=== PATIENT | female | born 1955 | race Caucasian/White ===

== ENCOUNTER 2020-01-02 14:17 | Emergency (ER) | payer OTHER, SELFPAY ==
[2020-01-02 14:25] VITALS: BP 190/91; PULSE 84; RESP 20; TEMP 36.7; O2SAT 96; BMI 34.3
--- NOTE | 2020-01-02 14:32 | DI.RAD.S_ITS ---
PROCEDURE: XR CHEST 2V INDICATIONS: shortness of breath TECHNIQUE: 2 views of the chest were acquired. COMPARISON: None. FINDINGS: Surgical changes and devices: None. Lungs and pleura: Lungs are clear. No pleural effusions or pneumothorax. Mediastinum: Mediastinal contours are normal. Heart size is normal. Bones and chest wall: No suspicious bony abnormalities. Soft tissues appear unremarkable. IMPRESSION: No acute cardiopulmonary process is evident. Dictated by: Sekou Dunn M.D. on 01/02/2020 at 14:30 Approved by: Sekou Dunn M.D. on 01/02/2020 at 14:30
--- NOTE | 2020-01-02 14:48 | PC.NURSE ---
Pt states over past 2 days has had increasing SOB with wheezing and intermittent productive cough of yellow sputum. Pt denies fever/chills, denies CP, denies any known exposure to anyone with Covid-19, reports hx of COPD. Pt speaking full sentences with ease while at rest, noted with increasing labored breathing with movement, otherwise pt in NAD.
--- NOTE | 2020-01-02 14:51 | ED_ITS ---
HPI - SOB/Dyspnea <BRANDI Castillo - Last Filed: 01/02/20 18:38> General Chief Complaint: Shortness of Breath/Dyspnea Stated Complaint: copd-wheezing/nausea/headache x2 days Time Seen by Provider: 01/02/20 14:38 Source: patient Mode of arrival: Ambulatory Limitations: no limitations History of Present Illness HPI Narrative: 64yo female with a history of COPD, presents emergency department for wheezing for the past 2 days. She states she treat her COPD with occasional nebulizers, she has had to use 3 nebulizers a day for the past 2 days due to increased wheezing. Patient states these exacerbations happen intermittently and are usually relieved with prednisone. 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 Patient states she is able to walk without significant shortness of breath. She denies any fevers, chills, cough, sore throat, chest pain, abdominal pain, nausea, vomiting, diarrhea, or any other concerns. Patient requesting prednisone prescription. Related Data Home Medications Medication Instructions Recorded Confirmed ibuprofen 600 mg PO TID #0 03/22/16 oxycodone-acetaminophen [Percocet] 1 tab PO Q4HP PRN #0 03/22/16 venlafaxine #0 03/22/16 Previous Rx's Medication Instructions Recorded oxycodone-acetaminophen [Percocet] 1 - 2 tab PO EVERY 4-6 HOURS PRN 03/22/16 #20 tab prednisone 50 mg PO DAILY 4 Days #4 tab 01/02/20 Allergies Allergy/AdvReac Type Severity Reaction Status Date / Time No Known Drug Allergies Allergy Verified 01/02/20 15:20 Review of Systems <BRANDI Castillo - Last Filed: 01/02/20 18:38> Review of Systems Narrative: REVIEW OF SYSTEMS: GENERAL: Denies fevers. HENT: No head trauma or hearing loss. EYES: No vision changes. CARDIOVASCULAR: No chest pain. RESPIRATORY: Reports wheezing, see HPI. GASTROINTESTINAL: No nausea, vomiting, diarrhea, or constipation. MUSCULOSKELETAL: No weakness or injury. INTEGUMENTARY: No rash, lesions, or pruritus. NEURO: No memory loss, or confusion. Patient History <BRANDI Castillo - Last Filed: 01/02/20 18:38> Medical History COPD (chronic obstructive pulmonary disease) (Acute) Social History Smoking Status: Never smoker Smoking Status: Never smoker alcohol intake frequency: 0-2 drinks per day Substance Use Type: does not use Exam <BRANDI Castillo - Last Filed: 01/02/20 18:38> Initial Vital Signs Initial Vital Signs: Vital Signs Temperature 98.1 F 01/02/20 14:25 Pulse Rate 84 01/02/20 14:25 Respiratory Rate 01/02/20 14:25 Blood Pressure 190/91 H 01/02/20 14:25 Pulse Oximetry 96 01/02/20 14:25 PHYSICAL EXAMINATION: GENERAL: Well groomed, alert, and cooperative. Answers questions promptly and appropriately. Vital signs noted. HENT: Normocephalic, atraumatic. Ear canals patent. Oropharynx without erythe ma. Tonsils are not present. EYES: Conjunctiva pink, sclera white, no periorbital swelling. No discharge. CHEST: Normal to inspection and without deformities. CARDIOVASCULAR: S1 and S2 sounds normal. Regular rate and rhythm, no murmurs, clicks, or bruits. RESPIRATORY: Normal respiratory rate, trachea midline, airway patent. No stridor, nasal flaring or accessory muscle use. Able to speak in full sentences. Lungs with diffuse expiratory wheezes, no crackles. No cough. Patient able to quickly ambulate across the department to use the bathroom, no respiratory distress seen. MUSCULOSKELETAL: Normal gait and coordination. Equal tone and mass bilaterally. EXTREMITIES: Moves all extremities. SKIN: Warm, dry, soft, appropriate color for ethnicity. No lesions, rashes, or wounds to visualized areas. NEURO: Alert and Oriented X 3. Good coordination. No ataxia or cognitive issues. PSYCH: Appropriate affect and mood. <Jean Alva MD - Last Filed: 01/03/20 07:27> Initial Vital Signs Initial Vital Signs: Vital Signs Temperature 98.1 F 01/02/20 14:25 Pulse Rate 84 01/02/20 14:25 Respiratory Rate 20 01/02/20 14:25 Blood Pressure 190/91 H 01/02/20 14:25 Pulse Oximetry 96 01/02/20 14:25 Course <BRANDI Castillo - Last Filed: 01/02/20 18:38> Course Course Narrative: Patient was given 6 past of an albuterol inhaler, reported significant improvement of wheezing and shortness of breath. Upon re-evaluation post prednisone and albuterol inhaler, patient had resolution of wheezes, occasional scattered rhonchi noted at the bases that cleared with cough. Patient states she is ready for discharge, requesting work note. Discussed testing for covered due to exacerbation of COPD, patient was agreeable at this time. Orders Ordered: Discontinued Medications Albuterol (Ventolin Hfa) 6 puff INH NOW ONE Stop: 01/02/20 14:55 Last Admin: 01/02/20 15:04 Dose: 6 puff Documented by: JIMMY Albuterol/Ipratropium (Combivent Respimat) 2 puff INH NOW ONE Stop: 01/02/20 14:48 Prednisone (Deltasone) 60 mg PO NOW ONE Stop: 01/02/20 14:48 Last Admin: 01/02/20 15:21 Dose: 60 mg Documented by: SKYLAR Consultations Consultation #1: Patient staffed with Dr. Alva, discussed symptoms, tests, test results. Vital Signs Vital signs: Vital Signs - 8 hr 01/02/20 14:25 01/02/20 15:06 01/02/20 16:00 Temperature 98.1 F Pulse Rate 84 100 H 69 Respiratory Rate 20 26 H 18 Blood Pressure 190/91 H Blood Pressure [Right Arm] 143/68 H Pulse Oximetry 96 96 96 <Jean Alva MD - Last Filed: 01/03/20 07:27> Orders Ordered: Discontinued Medications Albuterol (Ventolin Hfa) 6 puff INH NOW ONE Stop: 01/02/20 14:55 Last Admin: 01/02/20 15:04 Dose: 6 puff Documented by: JIMMY Albuterol/Ipratropium (Combivent Respimat) 2 puff INH NOW ONE Stop: 01/02/20 14:48 Prednisone (Deltasone) 60 mg PO NOW ONE Stop: 01/02/20 14:48 Last Admin: 01/02/20 15:21 Dose: 60 mg Documented by: SKYLAR Vital Signs Vital signs: Vital Signs - 8 hr 01/02/20 14:25 01/02/20 15:06 01/02/20 16:00 Temperature 98.1 F Pulse Rate 84 100 H 69 Respiratory Rate 20 26 H 18 Blood Pressure 190/91 H Blood Pressure [Right Arm] 143/68 H Pulse Oximetry 96 96 96 [facility] - SOB/Dyspnea <BRANDI Castillo - Last Filed: 01/02/20 18:38> Medical Records Attestation: I reviewed the patient's medical records. Lab Data Attestation: I reviewed the patient's lab results. Imaging Data Chest x-ray: Radiologist's Impression: [address] [address] XRay Report Signed Patient: Maria M Howell LMR#: [id number] : 8Acct:[id number] Age/Sex: 64 / FDate of Service: 01/02/20 Loc: ED Accession Number: [id number] Procedure: XR chest 2V Ordering Provider: Jean Alva MD PROCEDURE: XR CHEST 2V INDICATIONS: shortness of breath TECHNIQUE: 2 views of the chest were acquired. COMPARISON: None. FINDINGS: Surgical changes and devices: None. Lungs and pleura: Lungs are clear. No pleural effusions or pneumothorax. Mediastinum: Mediastinal contours are normal. Heart size is normal. Bones and chest wall: No suspicious bony abnormalities. Soft tissues appear unremarkable. IMPRESSION: No acute cardiopulmonary process is evident. Dictated by: Sekou Dunn M.D. on 01/02/2020 at 14:30 Approved by: Sekou Dunn M.D. on 01/02/2020 at 14:30 ECG Data Interpretation: 14:49; normal sinus rhythm, rate 78, ME interval 138, QTC 437. No ST elevation or ST depression. No T-wave abnormality. No ectopy. EKG also viewed by Dr. Alva per protocol. [facility] Narrative Medical decision making narrative: 64-year-old female with a history of COPD, presents emergency department for increased wheezing over the past 2 days. I suspect patient's symptoms are most likely caused by a COPD exacerbation, u nsure the exact cause of exacerbation. May include allergies versus viral illness. No systemic symptoms for acute illness such as fever, tachycardia, cough, or fatigue. However, chest x-ray was ordered to rule out pneumonia, pulmonary edema, or other cardiopulmonary disease. Images were negative for any acute findings. After discussion with patient, recommended testing for COVID-19 due to current pandemic. Patient's symptoms significantly improved after administration of albuterol and prednisone. Patient states usually prednisone helps resolve symptoms. Less suspicion for ACS as EKG is without acute changes, symptoms resolved after albuterol administration, and patient denies any other symptoms such as chest pain or activity intolerance. Patient was encouraged to stay home and self quarantine until symptoms have resolved. She was encouraged to follow up with her primary care provider in 1-2 weeks for further evaluation. Strict return precautions given for new or worsening symptoms. Patient was agreeable to plan of care. Discharge Plan Departure Patient Disposition: Home Clinical Impression: Acute exacerbation of chronic obstructive pulmonary disease Discharge Date/Time: 01/02/20 16:15 Instructions: DI for Chronic Obstructive Pulmonary Disease, Coronavirus Disease 2019, Can COVID-19 be prevented? Activity Restrictions/Additional Instructions: Thank you for entrusting me with your care today. As discussed, your x-ray is negative for any concerning findings. Your EKG is non-remarkable. Your symptoms are most likely caused by a COPD exacerbation, use your nebulizing treatments every 4-6 hours as needed for shortness of breath and wheezing. I have given you your 1st dose of prednisone today. A prescription for a prednisone taper has been sent to [facility] in [place]. You have been tested for COVID-19. This test may take 1-3 days for results to return, we will call you with these results. Please remain in quarantine with self isolation at home. Drink lots of fluids, take Tylenol for fever, get extra rest, clean all surfaces, cover your cough, wash your hands frequently, and avoid sharing any personal items. If you need to seek medical care, please call the clinic or the emergency department before your arrival. Return emergency department for any new or worsening symptoms such as chest pain, worsening shortness of breath, fevers, uncontrollable vomiting, or any other concerns. Prescriptions: New prednisone 50 mg tablet 50 mg PO DAILY 4 Days Qty: 4 RF: 0 No Action venlafaxine 25 mg tablet Qty: 0 RF: 0 oxycodone-acetaminophen [Percocet] 5 MG/325 MG tablet 1 tab PO Q4HP PRNQty: 0 RF: 0 ibuprofen 600 MG tablet 600 mg PO TID Qty: 0 RF: 0 oxycodone-acetaminophen [Percocet] 5 MG/325 MG tablet 1 - 2 tab PO EVERY 4-6 HOURS PRNQty: 20 RF: 0 Referrals: Ewa Armenta ARNP [Primary Care Provider] - Stand Alone Forms: Work Release Note
[2020-01-02] MEDS: ALBUTEROL HFA 60 PUFF/8 GM INH 6 PUFF INH (15:04)
[2020-01-02 15:06] VITALS: PULSE 100; RESP 26; O2SAT 96
[2020-01-02] MEDS: predniSONE 20 MG TABLET 60 MG PO (15:21)
[2020-01-02 16:00] VITALS: BP 143/68; PULSE 69; RESP 18; O2SAT 96
[2020-01-06 09:01] LABS: COVID19 Sendout Not Detected (Not Detected)
== END 2020-01-02 16:15 | disposition home or self-care (01) ==
PROVIDERS: Emergency Provider Nurse Practitioner; PCP Nurse Practitioner Gerontology
DX: J44.1 Chronic obstructive pulmonary disease with (acute) exacerbation (principal)
CPT/HCPCS: 71046; 87635; 93005; 94150; 94640; 99284

== ENCOUNTER → 2022-03-08 10:46 | Outpatient (CLI) | payer OTHER, SELFPAY ==
[2022-03-08 11:35] LABS: COVID19 -Nasal RAPID Negative (Negative)
--- NOTE | 2022-03-09 18:40 | DI.NM.S_ITS ---
DATE OF SERVICE: 03/08/2022 PROCEDURE: Pharmacological perfusion study. INDICATION: Dyspnea, chest pressure. RADIOPHARMACEUTICAL: 27.1 millicurie technetium-99m Myoview IV was injected at stress and 23.8 millicurie technetium-99m Myoview IV was injected at rest. CARDIAC STRESS: The patient underwent IV Lexiscan perfusion study under the supervision of an attending staff, as per standard protocol. No chest discomfort. The patient had minimal dyspnea during Lexiscan. Baseline rhythm was sinus. During stress, no convincing ischemic changes seen. No significant arrhythmias seen. The patient remained hemodynamically stable. However, while walking, oxygen saturation dropped to 90 percent. RAW DATA: There is a breast shadow seen. GATED STUDY: Resting LV ejection fraction 69 and stress LV ejection fraction 78 percent without any obvious wall motion abnormalities. Resting end-diastolic volume 113 mL. TID ratio 0.98, which is within normal limits. Lung/heart ratio 0.29, which is within normal limits. MYOCARDIAL PERFUSION SCAN: Stress supine, resting supine and stress prone images were compared to each other. Stress supine images revealed small size, mildly decreased perfusion of distal anterior wall and anteroapex. This was seen during resting supine images, as well. During stress prone images, distal anterior wall and anteroapical defect got resolved. However, the patient developed a new inferoapical defect. This suggest shifting breast tissue attenuation artifact. No convincing ischemia or infarction pattern seen. CONCLUSION: I will call this study likely a normal myocardial perfusion study with evidence of breast tissue attenuation artifact, as stated above. Preserved left ventricular function. No wall motion abnormalities. No transient ischemic dilatation. Overall low-risk myocardial perfusion study. Maria M Howell - DAMARIS/[place]cha doc#: [id number]/job#: [id number] dd: 03/09/2022 17:39:00 dt: 03/09/2022 18:28:00 DICTATING /COPIES TO: Khalida Conklin MD COPIES MNE: NICOLETTE;
== END ==
PROVIDERS: PCP Nurse Practitioner Gerontology; Referring Provider Internal Medicine; Visit Provider Internal Medicine
DX: R07.89 Other chest pain (principal); R06.09 Other forms of dyspnea; Z20.822 Contact with and (suspected) exposure to COVID-19
CPT/HCPCS: 78452; 87635; 93017; A9502; J2785

== ENCOUNTER 2022-12-19 08:47 | Day surgery (SDC) | payer OTHER, MEDICARE, SELFPAY ==
--- NOTE | 2022-12-19 | PATH_ITS ---
[facility] Accession Number: [id number] No. of containers..01 Tissue . 01 Material submitted: . small bowel - SMALL BOWEL . 01 Clinical history: . FOR CELIAC . 01 Diagnosis: Small Bowel, Biopsy: Small bowel mucosa with no diagnostic abnormality. Negative for active inflammation, features of sprue, dysplasia, or malignancy. MRV 12/27/2022 1409 Local . 01 Electronically signed: . Dustin Crum MD, PhD, Pathologist NPI- [id number] . 01 Gross description: . SMALL BOWEL: Received in formalin is 1 fragment(s) of richards, soft tissue measuring 0.3 x 0.2 x 0.2 cm submitted entirely in 1 cassette(s) /TRE 12/25/20222035 Local . 01 Pathologist provided ICD-10: D64.9 . 01 CPT . 849653 Specimen Comment: A courtesy copy of this report has been sent to [phone] Performed at: 01 [facility] [address] [place] [address], [place], [place] [id number] MD Nikhil Fox MD Phone: [phone]
--- NOTE | 2022-12-19 09:06 | P.HP_ITS ---
History of Present Illness History of Present Illness Date Patient Seen: 12/19/22 Chief complaint: DX COLONOSCOPY Narrative: Nausea reflux and history of anemia [facility] Medical History (Updated 01/17/20 @ 00:00 by ) COPD (chronic obstructive pulmonary disease) Social History Smoking Status: Never smoker Meds Home Medications and Allergies Home Medications Medication Instructions Recorded Confirmed Type ibuprofen 600 mg tablet 600 mg PO TID ##0 03/22/16 History oxycodone-acetaminophen 5 mg-325 1 - 2 tab PO EVERY 4-6 HOURS PRN 03/22/16 Rx mg tablet (Percocet) #20 tabs oxycodone-acetaminophen 5 mg-325 1 tab PO Q4HP PRN ##0 03/22/16 History mg tablet (Percocet) venlafaxine 25 mg tablet ##0 03/22/16 History Allergies Allergy/AdvReac Type Severity Reaction Status Date / Time No Known Drug Allergies Allergy Verified 01/02/20 15:20 Exam Narrative Exam Narrative: Oropharynx free of lesions Chest clear to auscultation percussion Cardiac exam reveals no S3 or murmur Assessment & Plan Assessment & Plan narrative: Nausea and heartburn with history of anemia need for EGD and colonoscopy. Risks, benefits, alternatives have been explained.
--- NOTE | 2022-12-19 09:08 | PM.OP.EC ---
Operative Date/Time/Diagnoses Date of procedure: 12/19/22 Pre-op diagnosis: See indication and findings Procedure & Clinicians Study performed: EGD and colonoscopy Indications: Nausea heartburn and anemia Surgeon: Wm Yun Procedure Notes Procedure in detail: After informed consent was obtained patient was placed in left lateral decubitus position. The video upper scope was placed into the oropharynx and with the patient's help swallowed into the esophagus. The esophagus stomach and duodenum were carefully examined. On withdrawal retroflexed view the GE junction was performed. The scope was removed. The patient tolerated procedure well. At this point the patient was turned in the colonoscope substituted. This was introduced into the rectum slowly advanced cecum. Preparation was good. On slow withdrawal mucosa was carefully examined. The scope was removed. The patient will procedure well. Blood loss none Complications none Sedation mac Findings EGD 1. Punctate white exudate in the upper 3rd of the esophagus consistent with Melody 2. Squamocolumnar junction at 35 cm with diaphragmatic hiatus at 40 cm. No Avery lesions seen no Whitehead's and no esophagitis. 3. Otherwise normal stomach 4. Normal duodenal bulb and sweep biopsies taken to rule out celiac Colonoscopy 1. 2 cm submucosal yellow lesion at the hepatic flexure consistent with lipoma 2. Otherwise negative colonoscopy to cecum Will be in touch regarding biopsies. I would put her on medications for her Melody. She should then follow-up with CBC in 2-4 weeks. If she is still substantially anemic than 1 could consider doing a pill camera to evaluate the small bowel.
[2022-12-19 09:30] VITALS: BMI 35.0
[2022-12-19 09:34] VITALS: BP 155/81; PULSE 73; RESP 18; TEMP 36.3; O2SAT 98
[2022-12-19] MEDS: LACTATED RINGERS 1,000 ML 100 ML IV (09:37)
[2022-12-19 10:57] VITALS: BP 124/70; PULSE 74; RESP 12; TEMP 36.6; O2SAT 98
[2022-12-19 11:01] VITALS: BP 131/73; PULSE 66; RESP 12; TEMP 36.6; O2SAT 98
[2022-12-19 11:05] VITALS: BP 145/80; PULSE 71; RESP 13; TEMP 36.6; O2SAT 100
[2022-12-19 11:11] VITALS: BP 129/80; PULSE 69; RESP 16; TEMP 36.6; O2SAT 99
[2022-12-19 11:17] VITALS: BP 130/81; PULSE 74; RESP 18; TEMP 36.6; O2SAT 98
== END 2022-12-19 11:41 | disposition home or self-care (01) ==
PROVIDERS: PCP Internal Medicine; Referring Provider Internal Medicine Gastroenterology; Visit Provider Internal Medicine Gastroenterology
PROC: 0DJ08ZZ Inspection of Upper Intestinal Tract, Via Natural or Artificial Opening Endoscopic (ICD-10-PCS; CPT 43235; principal; 2022-12-19 10:00)
PROC: 0DJD8ZZ Inspection of Lower Intestinal Tract, Via Natural or Artificial Opening Endoscopic (ICD-10-PCS; CPT 45378; 2022-12-19 10:00)
DX: D64.9 Anemia, unspecified (principal); R11.0 Nausea; K21.9 Gastro-esophageal reflux disease without esophagitis; K44.9 Diaphragmatic hernia without obstruction or gangrene
CPT/HCPCS: 45378; 43239

== ENCOUNTER → 2024-04-13 15:08 | Outpatient (CLI) | payer OTHER, SELFPAY ==
--- NOTE | 2024-04-13 15:10 | DI.CT.S_ITS ---
PROCEDURE: CT SOFT TISSUE NECK W CON INDICATIONS: SUBMANDIBULAR MASS, LUNG NODULE TECHNIQUE: After the administration of intravenous contrast, 3.0 mm axial sections acquired from the sella to the aortic arch. Additional oblique axial 3.0 mm sections acquired through the pharynx. 3 mm thick coronal and sagittal reformats were generated. For radiation dose reduction, the following was used: automated exposure control. COMPARISON: [facility], CT, CT CHEST WO CON, 04/13/2024, 15:21. FINDINGS: Image quality: Excellent. Lymph nodes: No enlarged lymph nodes seen throughout the neck. Vessels: Visualized vasculature appears patent. Neck spaces: The oropharynx, nasopharynx, and pharynx demonstrate no mucosal lesions. The vocal cords, false vocal cords, pyriform sinuses, epiglottis, vallecula, and tongue base all appear normal. Extramucosal spaces appear unremarkable. Glands: The parotid and submandibular glands appear normal. Thyroid gland is unremarkable. Miscellaneous: Visualized brain and orbits appear normal. Lung apices appear clear. Superficial soft tissues appear normal. Bones: No suspicious bony lesions. Visualized sinuses and mastoids appear unremarkable. IMPRESSION: No mass, architectural distortion or abnormal fluid collection is identified at the area palpable concern. Dictated by: Meeta Alvarado M.D. on 04/13/2024 at 18:53 Approved by: Meeta Alvarado M.D. on 04/13/2024 at 18:55
--- NOTE | 2024-04-13 15:10 | DI.CT.S_ITS ---
PROCEDURE: CT CHEST WO CON INDICATIONS: SUBMANDIBULAR MASS, LUNG NODULE TECHNIQUE: Noncontrast 5 mm thick sections acquired from the pulmonary apices to the posterior costophrenic angles. 1 mm lung window, 5 mm thick coronal and sagittal and 7 mm axial MIP reformats were then acquired. For radiation dose reduction, the following was used: automated exposure control, adjustment of mA and/or kV according to patient size. COMPARISON: [facility], CT, CT LOW DOSE LUNG CA SCREENING, 09/08/2020, 19:48. FINDINGS: Image quality: Diagnostic. Lower Neck: No enlarged lymph nodes. Thyroid: No thyroid nodules which require sonographic follow up, per consensus guidelines. Axillae: No enlarged lymph nodes. Chest Wall: Unremarkable. Bones: Unremarkable. Lungs and Pleura: No pneumothorax or pleural effusions. Stable 3 millimeter solid nodule, left lower lobe (series 3, image 195). Stable 3 millimeters solid nodule, right lower lobe (series 3, image 188). Heart: Heart size is mildly enlarged. No pericardial effusion. Marked coronary calcifications for age. Thoracic Vessels: The aorta and pulmonary arteries demonstrate normal size. Mediastinum and Adeline: No enlarged lymph nodes. Esophagus: No wall thickening. No hiatal hernia. Upper Abdomen: Visualized upper abdomen solid organs and bowel loops appear normal. IMPRESSION: No evidence of metastatic disease in the chest. Marked coronary artery calcifications for age. Correlate with risk factors and advise counseling. Dictated by: Lizandro Alston M.D. on 04/14/2024 at 8:24 Approved by: Lizandro Alston M.D. on 04/14/2024 at 8:27
== END ==
PROVIDERS: PCP Internal Medicine; Referring Provider Internal Medicine; Visit Provider Internal Medicine
DX: R22.0 Localized swelling, mass and lump, head (principal); R91.8 Other nonspecific abnormal finding of lung field; I25.10 Atherosclerotic heart disease of native coronary artery without angina pectoris
CPT/HCPCS: 70491; 71250; Q9967

== ENCOUNTER 2025-01-06 06:25 | Inpatient (IN) | payer OTHER, MEDICARE, SELFPAY ==
[2024-12-31 13:50] VITALS: BMI 37.0
[2025-01-06] VITALS (10 sets, daily range): BP systolic 110–142; BP diastolic 45–73; PULSE 71–95; RESP 13–18; TEMP 36.2–36.6; O2SAT 91–96; BMI 35.5
--- NOTE | 2025-01-06 06:00 | DI.RAD.S_ITS ---
PROCEDURE: XR KNEE RT 1TO2V INDICATIONS: TKA TECHNIQUE: 2 view(s) of the knee acquired. COMPARISON: [facility], CR, XR KNEE 4+ VIEWS RIGHT, 10/22/2024, 16:10. FINDINGS: Bones: Patient is status post knee joint arthroplasty. Hardware components are in expected positions. Visualized bony structures are intact. Soft tissues: Overlying postoperative changes are noted. IMPRESSION: Expected post-operative appearance of a knee arthroplasty. Dictated by: Keith Solano M.D. on 01/06/2025 at 12:02 Approved by: Keith Solano M.D. on 01/06/2025 at 12:02
--- NOTE | 2025-01-06 07:00 | PM.PREOP ---
Pre-operative Note Interval Note History & Physical reviewed/Exam performed by Physician: Yes Changes to H&P: No
[2025-01-06] MEDS: LACTATED RINGERS 1,000 ML 42 ML IV ×2 (07:18→09:55)
[2025-01-06] MEDS: ACETAMINOPHEN 325 MG TABLET 975 MG PO (07:19)
[2025-01-06] MEDS: CELECOXIB 200 MG CAPSULE 400 MG PO (07:19)
[2025-01-06] MEDS: CEFAZOLIN 2 GM/100 ML PREMIX 100 ML IV ×3 (07:48→23:33)
[2025-01-06] MEDS: TRANEXAMIC ACID 1,000 MG VIAL 1000 MG INJ ×2 (07:59→09:46)
--- NOTE | 2025-01-06 08:21 | SUR.OPER ---
Supine on padded OR bed. Pillow under head, arms secured on padded armboards <90 degree abduction. Safety belt across torso. Non-operative leg secured with tape over blanket over lower leg. Operative leg secured in [employer] positioner. Foam padded brace at thigh of operative leg.
[2025-01-06] MEDS: BUPIVACAINE 0.25% W/ EPI 30 ML VIAL 60 ML INJ (08:40)
[2025-01-06] MEDS: BUPIVACAINE LIPOSOME 266 MG/20 ML VIAL INJ (08:41)
--- NOTE | 2025-01-06 10:07 | P.OP_ITS ---
Operative Date/Time/Diagnoses Date of procedure: 01/06/25 Time of procedure: 08:00 Pre-op diagnosis: Right knee arthritis, BMI 35 Post-op diagnosis: same Procedure & Clinicians Procedure: Right total knee arthroplasty CPT code 33572 Computer-assisted navigation CPT code 13424 Robotic assisted surgery CPT code S2 900 Same procedure(s) as scheduled: Yes Indications: The patient is a 69 year old female with end-stage [id number] knee arthritis. The patient has a significant right valgus knee arthritis. They have failed conservative treatment with activity modifications, injections, physical therapy and bracing. They has been indicated for total knee replacement. The risks and benefits of the procedure have been discussed with the patient even opportunity to ask questions. The risks of surgery include but are not limited to infection, malunion, nonunion, fracture, loosening, persistence of pain, damage to nerves and blood vessels, need for additional procedures, DVT, PE, cardiopulmonary complications and . The patient expressed a thorough understanding of the risks and benefits of surgery and has elected to proceed. Consent was signed. During the operation the services of physician surgical clinical reviewer were medically indicated and necessary to provide the exposure of the operative site for the surgical procedure and to maintain the limb in a proper position to carry out the procedure safely and efficiently. Without a qualified funeral home assistant being present this would extend the operative procedure and would have made the procedure more technically difficult to perform. The surgical clinical reviewer was medically necessary for the proper positioning, retraction and manipulation of the limb, proper exposure, and manipulation of the tissue for implantation implants and closure. Surgeon: [facility] Associate: Saad López Anesthesia Type: General, Spinal and Peripheral nerve block Operative Notes Findings: End-stage tricompartmental knee arthritis most significant with valgus alignment and large osteophytes. Right knee Closure Type: primary Specimen(s): none sent Prosthetic devices, grafts, tissues, transplants, or devices: Gillespie and Nephew journey 2 bi CS total knee Femur size 4 Oxinium Tibia size 3 Polyethylene 12 mm Patella 32 x 7.5 Applied: other (dressing) Estimated Blood Loss (mL): 100 Blood products transfused: none Tourniquet time (min): 84 Procedure in detail: Patient was seen in the preoperative area where the patient and site of surgery were identified in the operative knee was marked informed consent confirmed. This was the right knee. Patient received the appropriate preoperative antibiotics this was 2 g of Ancef. And other preoperative medications and was taken to the operating room placed on operating table in the supine position. Spinal anesthetic were administered. The operative extremity was then prepped and draped in the standard sterile fashion with a nonsterile tourniquet high on the thigh. Patient was placed on the green foam bolsters. A lateral post was placed at the level of the proximal thigh /trochanter area as a lateral post. Formal time-out procedure was performed confirming the patient's side and site of surgery and administration of appropriate preoperative antibiotics and implants were in the room accounted for. All were in agreement. Patient received a preoperative dose of tranexamic acid and then a 2nd dose at tourniquet release Patient was prepped and draped in the standard sterile fashion and the foot was placed into the leg schultz. This was taken into high flexion and the incision was marked out over the anterior knee to the level of the medial tubercle tubercle. The Esmarch was then used for exsanguination and the tourniquet was inflated to 250 mmHg. Was made through the skin and subcutaneous tissue in high flexion this was then brought down into 30? of flexion for the medial parapatellar arthrotomy. A marker pen was used to silvia the arthrotomy site for later repair. Joint fluid was evacuated. The anterior osteophytes and soft tissues were removed. Routine medial release was initially made along the medial proximal tibia with Bovie. The patella was 1st cut using the saw sized and prepped and then subluxed throughout the case and protected. The leg was then taken into extension and the patella was everted and the pa tella was cut to accommodate the patellar button. This was sized to a 32 mm button for a 7.5 mm thickness to recreate the original dimensions of the patella. Poly was removed and the protector replaced and the patella was subluxed and the knee was taken back up into flexion and attention was returned to the femur. Then the rotational landmarks of Whitesides line and the trans epicondylar axis were marked on the femur with electrocautery. ACL and PCL were released. Then the Cori robotic pins were placed into the femur and tibia and the race set up. Landmarks were established and the robotic planning was commenced. Plan was developed and improved and adjusted as necessary to create a balanced knee. Preoperative alignment was 6? of valgus plan postoperative alignment correcting to 0 and achieved proximally 1 degree of valgus balanced in flexion extension 1- 2 mm. 4? of flexion was placed in the distal femur in 4? of external rotation matching the natural alignment. Additionally and extension the IP band was pie crusted to loosen up laterally. Plan was satisfactory the bur was used to remove the distal femur then the 5 in 1 cutting block was applied complete the femur cuts. Attention was then turned to the tibia and the tibial resection was made in accordance with the robotic planning. An additional 1 mm was taken off the tibia as this was still tight when tested in extension initially. 1 mm recut was satisfactory. The trials were placed. And the femoral notch was cut a standard fashion using Reamer then slap hammer. The knee was trialed and the checked. Knee was balanced in flexion extension. Range of motion 0-133 degrees was obtained. The rotation femoral trial was marked Bovie on the bone and checked with a long tae. The tibia was then finished with a drill and flange cut and then The trial implants were removed. Then in extension the posterior capsule was injected with a mixture of 40 mL of 0.25% Marcaine and 20 mL of Exparel care to avoid excessive injection posterior laterally. The remainder of this was saved for the capsule and subcutaneous tissue and placed during cement curing. The wound and bone was irrigated with pulsatile lavage. This was then dried with a sponge. The components were verified and opened and the cement was mixed. Cement was applied to the components and then to the bone then the tibia was cemented in place 1st followed by the femur then the patella. Excess cement was removed. With care looking around the back of the knee. Remainder of the injection was injected around the capsule. trial poly was placed back in the leg was placed into extension for the patellar cementing. After this was cured approximately 15 minutes later and the dilute Betadine solution was placed for at least 3 minutes in the wound this was then irrigated out and the final poly was placed. This was a 12 mm poly. The tourniquet was released hemostasis was achieved. Final 1g of tranexamic acid was given IV at the time of tourniquet release. The capsule was closed with 1. Ethibond suture. Followed by a running Quill stitch. Subcutaneous layer was closed with 3-0 Vicryl suture. Skin was closed with a running V lock suture Stratafix Monocryl type suture and Dermabond. An Aquacel dressing was placed . An Reynaldo wrap was applied. Anesthetic was terminated the patient was woken from anesthesia and taken to recovery room in good condition. There no immediate complications from this procedure. The patient will be maintained on a standard total knee replacement protocol with weight-bearing as tolerated. Complications: none Post-operative Condition: stable Disposition: PACU Plan for aftercare: Weightbear as tolerated. Standard total knee postop protocol. Admission to the floor. Likely required senior care discharge due to social factors and comorbidities. Follow up in Orthopedic Clinic in 2 weeks. Aspirin 81 mg b.i.d. for 6 weeks for DVT prophylaxis.
[2025-01-06] MEDS: HYDROMORPHONE 1 MG INJ IV (10:44)
[2025-01-06] MEDS: OXYCODONE IR 5 MG TABLET PO (10:47)
[2025-01-06] MEDS: ACETAMINOPHEN 325 MG TABLET 650 MG PO ×3 (11:33→23:35)
[2025-01-06] MEDS: LACTATED RINGERS 1,000 ML 100 ML IV ×2 (11:33→21:35)
[2025-01-06] MEDS: IBUPROFEN 400 MG TABLET PO ×4 (11:33→23:33)
[2025-01-06] MEDS: HYDROMORPHONE 0.5 MG INJ IV ×2 (13:19→20:31)
[2025-01-06] MEDS: OXYCODONE IR 10 MG TABLET PO ×2 (14:02→18:47)
--- NOTE | 2025-01-06 14:38 | PT.IIE ---
Current Diagnoses Bilateral primary osteoarthritis of knee (01/06/25) Unilateral primary osteoarthritis, right knee (01/06/25) Other specified joint disorders, unspecified knee (01/06/25) Surgery Performed Operation Date: 01/06/25 07:45 Actual Procedures p Total Knee Arthroplasty - Robot(Right) - Jess Downs MD Surgical History (Last Updated 12/31/24 @ 14:45 by Elizabeth Dsouza, RN) Hx of appendectomy Hx of cholecystectomy Hx of tonsillectomy S/P lumpectomy, right breast Medical History (Last Updated 12/31/24 @ 13:47 by Elizabeth Dsouza, RN) Anemia Asthma COPD (chronic obstructive pulmonary disease) Depression DJD (degenerative joint disease) GERD (gastroesophageal reflux disease) HLD (hyperlipidemia) HTN (hypertension) Osteoarthritis Osteopenia Pulmonary nodule Physical Therapy Inpatient Evaluation/Re-Eval M1 PT/OT-IP Prior Functional Status Start: 01/06/25 15:26 Freq: NEEDED Status: Active Protocol: Document 01/06/25 14:38 AB (Rec: 01/06/25 15:37 AB [id number]) Medical Review Prior Functional Status Medical History Yes Reviewed Communication able to make needs known Mobility and Gait pt stated that she was modified independent with all mobilities and ambulation without AD Social History Household Members family Living Arrangements RV Number of Floors ( One Floor Floors) Number of Stairs To 3 steps L rail ascending Enter/Railing? Home Environment Standard Height Toilet,Tub/Shower Home Equipment Front Wheel Walker,Raised Toilet Seat w/Armrests,Shower Seat with Backrest,Hand Held Shower,Grab Bars In Shower Additional Social pt has her niece and [id number] to assist her at History Comment home; niece will not be able to provide much assistance M2 PT-IP Current Condition Start: 01/06/25 15:26 Freq: NEEDED Status: Active Protocol: Document 01/06/25 14:38 AB (Rec: 01/06/25 15:37 AB [id number]) Physical Therapy Current Condition Current Condition Evaluation Date 01/06/25 Treatment Diagnosis s/p R TKA; difficulty in walking Onset Date 01/06/25 M3 PT-IP Subjective Start: 01/06/25 15:26 Freq: NEEDED Status: Active Protocol: Document 06/25/25 14:38 AB (Rec: 01/06/25 15:37 AB [id number]) Subjective Physical Therapy Visit Type Type Initial Evaluation Visit Start Time 14:38 Visit Stop Time 15:20 Number of BRANCH ASSOCIATE TELLER Visits 0 Physical Therapy Visit Comments Patient Comments agreeable to do PT Therapy Pain Assessment Pain When Pain Assessed At Rest Pain Present Pain Present Pain Reported Location right knee Intensity 9 Scale Used Numeric (0 - 10) Description Spasm Pain Behaviors Facial Grimacing,Guarding,Holding Area,Wincing Pain Management Apply Cold,Distraction,Elevation,Modification of Techniques Treatment,Re-positioning,Timing of Activity with Medications M4 PT-IP Mobility and Gait Start: 01/06/25 15:26 Freq: NEEDED Status: Active Protocol: Document 01/06/25 14:38 AB (Rec: 01/06/25 15:37 AB [id number]) PT-Bed Mobility Assessment Supine to Sit Supine to Sit Standby Assistance,1 Person Assistance,Head of Bed Elevated Sit to Supine Sit to Supine Contact Guard Assistance,1 Person Assistance PT-Transfer Assessment Sit to and From Stand Sit to and from Moderate Assistance,2 Person Assistance,Use of Upper Stand Extremities Equipment Transfer Assistive Gait Belt,Front Wheeled Walker Device Orthotic/Prosthetic No Devices or Brace: Comments Mobility Comments pt in bed and niece in room. pt agreed to do PT. obtained PLOF and home set up. post-op folder provided to pt. educated on HEP. BP: 120/55. completed heel slides prior to mobility. pt able to complete supine to sit SBA and cues but required increase time to complete task. able to sit on EOB SBA. required max A for scooting to EOB. BP: 140/59. pt rested. BP checked again: 139/48. completed sit to stand mod A x 2 and max cues. c/o increase R knee pain. able to take side steps towards HOB using FWW ~ 2 ft mod A x 2 and max cues. pt presents with slight R knee buckling needing assist and cues to stabilize. pt requested to lay back in bed. pt completed sit to supine CGA and cues. positioned pt in bed. call light and table placed within reach. Gait Assessment Comments Gait Comments only able to take side steps using FWW ~ 2 ft to position in bed mod A x 2 PT-Balance Assessment Sitting Balance and Reactions Static Sitting Normal Balance Ability Dynamic Sitting Good Balance Ability Standing Balance and Reactions Static Standing Poor Balance Ability Dynamic Standing Poor Balance Ability Device Used FWW M5 PT-IP Objective Assessments Start: 01/06/25 15:26 Freq: NEEDED Status: Active Protocol: Document 01/06/25 14:38 AB (Rec: 01/06/25 15:37 AB [id number]) Orientation Orientation/Cognition Level of Alertness Alert Orientation Name,Place,Situation Language Function No Deficits Noted Ability Safety Awareness Decreased Safety Awareness Memory Description No Deficits Noted Gross Range of Motion Lower Extremity ROM Impairments pain limiting ROM Strength Lower Extremity Strength Assessment Right Impaired Hip 4-/5 Knee 3+/5 Coordination Assessment Gross Coordination Gross Coordination WNL Sensation Assessment Sensation Gross Sensation WNL Muscle Tone Muscle Tone WNL Yes M6 PT-IP Treatment Start: 01/06/25 15:26 Freq: NEEDED Status: Active Protocol: Document 01/06/25 14:38 AB (Rec: 01/06/25 15:37 AB [id number]) Physical Therapy Treatment Exercises Exercises Heel Slides Education Education Provided Precautions,Weight Bearing Status,Post-Op Packet,Safety M7 PT-IP Assessment and Plan Start: 01/06/25 15:26 Freq: NEEDED Status: Active Protocol: Document 01/06/25 14:38 AB (Rec: 01/06/25 15:37 AB [id number]) PT Summary Assessment and Plan Potential Rehabilitation Fair Potential Status of Condition Evolving at Evaluation Summary Impairments Pain,ROM,Strength,Balance,Coordination,Sensation,Tone, Cognition,Bed Mobility,Transfers,Gait,Activity Tolerance Assessment Summary pt is a 69 y/o F s/p R TKA POD 0. pt is WBAT on RLE. pt requiring mod A x 2 for sit to stand and unable to ambulate but able to take a few side steps using FWW to position in bed mod A x 2 and max cues. pt will require 24/7 assist and at this time will benefit from SNF rehab. will continue to assess progress. Goals Bed Mobility Goal Independent Transfer Goal Standby Assistance,Front Wheeled Walker Gait Goal Standby Assistance,Front Wheel Walker Gait Distance 100 Other Goals up/down 3 steps L rail ascending SBA Days to Meet Goals 5 Frequency of Treatment Frequency Of Twice a Day Treatment Treatment Plan Physical Therapy Bed Mobility Training,Transfer Training,Gait Training, Treatment Plan Therapeutic Exercise,Balance Retraining,Post Op Education,Discharge Planning,Hot or Cold Pack, Neuromuscular Re-ed,Coordination Retraining,Manual Therapy Weight Bearing Status Weight Bearing Weight Bear as Tolerated Status Allowed Weight RLE WBAT Bearing Amount ( enter % or #) (%) Recommendations To Nursing Amount of Assist 2 Person Assist Needed Discharge Recommendations PT Discharge Home with 04/02 Assist Available,Home Health,SNF Rehab, Recommendations Home vs SNF Transportation Needs Private Vehicle,Wheelchair/Cabulance at Discharge - PT assist 2
[2025-01-06] MEDS: hydrOXYzine HCL 25 MG TABLET PO (14:56)
--- NOTE | 2025-01-06 15:24 | OT.IP.EVAL ---
Current Diagnoses Bilateral primary osteoarthritis of knee (01/06/25) Unilateral primary osteoarthritis, right knee (01/06/25) Other specified joint disorders, unspecified knee (01/06/25) Surgery Performed Operation Date: 01/06/25 07:45 Actual Procedures p Total Knee Arthroplasty - Robot(Right) - Jess Downs MD Past Medical History (Last Updated 12/31/24 @ 13:47 by Elizabeth Dsouza, RN) Anemia Asthma COPD (chronic obstructive pulmonary disease) Depression DJD (degenerative joint disease) GERD (gastroesophageal reflux disease) HLD (hyperlipidemia) HTN (hypertension) Osteoarthritis Osteopenia Pulmonary nodule Surgical History (Last Updated 12/31/24 @ 14:45 by Elizabeth Dsouza, RN) Hx of appendectomy Hx of cholecystectomy Hx of tonsillectomy S/P lumpectomy, right breast Occupational Therapy Inpatient Evaluation/Re-Eval M1 PT/OT-IP Prior Functional Status Start: 01/06/25 15:26 Freq: NEEDED Status: Active Protocol: Document 01/06/25 16:18 [facility] (Rec: 01/06/25 16:30 [facility] Desktop) Medical Review Prior Functional Status Medical History Yes Reviewed Communication able to make needs known Mobility and Gait pt stated that she was modified independent with all mobilities and ambulation without AD Activities of Daily Pt states niece would assist with LB dressing as needed Living and IADL's . Social History Household Members family Living Arrangements RV Number of Floors ( One Floor Floors) Number of Stairs To 3 steps L rail ascending Enter/Railing? Home Environment Standard Height Toilet,Tub/Shower Home Equipment Front Wheel Walker,Raised Toilet Seat w/Armrests,Shower Seat with Backrest,Hand Held Shower,Grab Bars In Shower Additional Social pt has her niece and [id number] to assist her at History Comment home; niece will not be able to provide much assistance M2 OT-IP Current Condition Start: 01/06/25 16:17 Freq: Status: Active Protocol: Document 01/06/25 16:18 [facility] (Rec: 01/06/25 16:30 [facility] Desktop) Occupational Therapy Current Condition Current Condition Evaluation Date 01/06/25 Treatment Diagnosis S/P R TKA Diagnosis Onset Date 01/06/25 M3 OT- IP Subjective and Pain Start: 01/06/25 16:17 Freq: Status: Active Protocol: Document 01/06/25 16:18 [facility] (Rec: 01/06/25 16:30 [facility] Desktop) OT- Subjective Occupational Therapy Visit Type Type Initial Evaluation Visit Start Time 14:39 Visit Stop Time 15:24 Occupational Therapy Visit Comments Patient Comments Pt agreed to get up. Able to request pain meds from nursing as pt having muscle spasms. Patient/Caregiver TO go to skilled rehab. Goals OT Pain Assessment Pain When Pain Assessed At Rest Pain Present Pain Present Pain Reported Location right knee Intensity 9 Scale Used Numeric (0 - 10) M4 OT- IP ADL's Start: 01/06/25 16:17 Freq: Status: Active Protocol: Document 01/06/25 16:18 [facility] (Rec: 01/06/25 16:30 [facility] Desktop) OT [id number] Comments OT Self-Feeding Not at meal time. Comments OT ADL-Grooming Comments OT Grooming Comments Pt able to wash her face after set-up. OT ADL-Oral Care Comments Oral Care Comments Not performed. OT ADL-Dressing General Eval Lower Body Dressing Maximum Assistance Ability Areas Needing Socks Assistance Comments OT Dressing Comments Educated best to dress the RLE first and take out last. OT ADL-Toileting Comments OT Toileting Not performed. Pt would benefit from a BSC at home. Comments OT ADL-Bathing Comments OT Bathing Comments Tub bench would be more beneficial for pt at this time. M5 OT- IP IADL's Start: 01/06/25 16:17 Freq: Status: Active Protocol: Document 01/06/25 16:18 [facility] (Rec: 01/06/25 16:30 [facility] Desktop) OT-Instrumental Activities of Daily Living Home Safety Awareness Awareness of Need Good Awareness for Assistance at Home Meal Preparation Meal Preparation Caregiver Provides Assist Unix Analyst Unix Analyst Caregiver Provides Assist M6 OT- IP Functional Cognition Start: 01/06/25 16:17 Freq: Status: Active Protocol: Document 01/06/25 16:18 [facility] (Rec: 01/06/25 16:30 [facility] Desktop) Cognitive Factors Limiting Selfcare Function Cognitive Ability Level of Alertness Alert,Drowsy Patient Orientation Name,Place,Situation Attention Span Capable of Focused Attention,Capable of Sustained Ability Attention Ability to Follow Able to Follow One Step Commands with Increased Time, Commands Able to Follow One Step Commands with Repetition Cognitive Comments Cognitive Assessment Pt a bit groogy yet from SX earlier. Pt needing Comments repeated vc for safety for FWW and hand placement during transitions. OT- Vision and Hearing OT- Hearing Assessment OT- Hearing Hearing Impaired Assessment OT- Vision Assessment Visual Acuity Glasses All The Time Visual Attentiveness WFL Occular Pursuits WFL M7 OT- IP Mobility and Balance Start: 01/06/25 16:17 Freq: Status: Active Protocol: Document 01/06/25 16:18 [facility] (Rec: 01/06/25 16:30 [facility] Desktop) OT- Bed Mobility Assessment Supine to Sit Supine to Sit Assist Standby Assistance,Head of Bed Elevated,Bedrails Sit to Supine Sit to Supine Assist Contact Guard Assistance OT-Transfer Assessment Sit to and From Stand Sit to and from Moderate Assistance,2 Person Assistance Stand Comments Mobility Comments BP supine 120/55, sitting 140/59 and after standing and seated 139/48, HOB up supine 119/58 and 109/64, and in supine 140/64. Pt complaining of feeling sweaty and tired. Nursing notified. SBA with HOB up to get to the edge of the bed, CGA to help get to supine. MODA x2 to stand and take a few side steps to the head of the bed. Encouraged pt to do BLE exercises in bed. Went over technique to slide her RLE forward before standing and sitting down and to be sure to use her hand to push up from surfaces. OT- Balance Assessment Sitting Balance and Reactions Static Sitting Good Balance Ability Dynamic Sitting Fair Balance Ability Standing Balance and Reactions Static Standing Poor Balance Ability Dynamic Standing Poor Balance Ability M8 OT- IP Objective Assessments Start: 01/06/25 16:17 Freq: Status: Active Protocol: Document 01/06/25 16:18 [facility] (Rec: 01/06/25 16:30 [facility] Desktop) OT Gross Range of Motion Upper Extremity Range of Motion Assessment Bilaterally Impaired ROM Impairments Decreased at end ROM OT Strength Upper Extremity Strength Assessment Bilaterally Impaired Comments Strength Comments BUE 4-/5 to 4/5 from proximal to distal. M9 OT- IP Assessment and Plan Start: 01/06/25 16:17 Freq: Status: Active Protocol: Document 01/06/25 16:18 [facility] (Rec: 01/06/25 16:30 [facility] Desktop) OT Summary Assessment and Plan Potential Rehabilitation Good Potential Analytic Complexity Low at Evaluation Summary OT Impairments Pain,Strength,Balance,Functional Mobility,Grooming, Dressing,Toileting,Bathing,Toilet Transfers,Shower Transfers,Activity Tolerance Progress Towards Slow Progress due to Pain,Slow Progress due to Medical Goals Issues,Slow Progress due to Activity Tolerance Assessment Summary Pt low complexity and main barriers are pain, steps, groggy and needing two person assist for mobility needs at this time. Pt having drop in BP and feeling sweaty after getting back to bed from taking a few side steps to the HOB. Pt open to going to skilled rehab prior to going home. Pt to go to skilled rehab when medically stable. Goals Self-Feeding Goal Independent Grooming Goal Independent Dressing Goal Minimal Assistance Toileting Goal Independent Bathing Goal Minimal Assistance Toilet Transfer Goal Independent Shower Transfer Goal Standby Assistance Days to Meet Goals 10 Frequency of Treatment Other frequency 5x/week Treatment Plan OT Treatment Plan ADL Training,Functional Mobility,Patient/Family Education,Discharge Planning Other Treatment [place] [facility] [place] 1 with FWW. Recommendations and Next Treatment Focus Discharge Recommendations OT Discharge SNF Rehab Recommendations Home Equipment Needs BSC, tub bench, LB dressing equipment Transportation Needs Wheelchair/Cabulance at Discharge
[2025-01-06] MEDS: methocarbamoL 500 MG TABLET 750 MG PO (17:20)
[2025-01-06] MEDS: ALBUTEROL 2.5 MG/3 ML NEB (ADULT) INH ×2 (19:40)
[2025-01-06] MEDS: BUDESONIDE 0.5 MG/2 ML NEB INH (19:41)
[2025-01-06] MEDS: ASPIRIN EC 81 MG TABLET PO (20:32)
[2025-01-06] MEDS: DOCUSATE 100 MG CAPSULE PO (20:32)
--- NOTE | 2025-01-06 22:10 | PC.NURSE ---
Addendum entered by Loulou Dixon R.N. 01/07/25 06:20: Slept between q2h repositioning. Up to BSC this morning with 2 assist and did well except for pain tolerance. Medicated with oxycodone following being up to commode and is currently asleep. Has been titrated off O2 with sat of 93% on RA. Original Note: Patient is alert and oriented. Breath sounds CTA and was on oxygen at 1.5L/min per NC at shift change with sat of 97% so have been titrating down and currently at 0.5L/min. HRR. Denied nausea. BT hypoactive but states she did pass a little flatus earlier. Voided at shift change and denied any dysuria; used bedpan. Was up on previous shift with PT and stood at bedside; gait not assessed at this time. Aquacel dressing to right knee is covered with veronica wrap. Having 7/10 pain in knee and had been medicated with oxycodone + scheduled Ibuprofen but still having significant pain so medicated with IV Dilaudid and pain came down to 3/10. CMS is intact bilaterally; was able to lift leg off bed approximately 1. Wearing bilateral calf SCD's. Fall risk score is high and bed alarm is activated.
[2025-01-07] MEDS: OXYCODONE IR 10 MG TABLET PO ×5 (01:40→19:44)
[2025-01-07] MEDS: IBUPROFEN 400 MG TABLET PO ×6 (03:14→23:35)
[2025-01-07 04:05] VITALS: O2SAT 93
[2025-01-07] MEDS: ACETAMINOPHEN 325 MG TABLET 650 MG PO ×4 (05:11→23:35)
[2025-01-07] MEDS: ALBUTEROL 2.5 MG/3 ML NEB (ADULT) INH ×2 (05:33→19:46)
[2025-01-07] MEDS: BUDESONIDE 0.5 MG/2 ML NEB INH ×2 (05:33→19:46)
[2025-01-07 06:20] LABS: Hematocrit 24.9 % (36-46); Hemoglobin 8.6 g/dL (12.0-16.0)
--- NOTE | 2025-01-07 07:02 | P.PN_ITS ---
Subjective Subjective Date Patient Seen: 01/07/25 Time Patient Seen: 07:02 Interval history: Postop day 1 right total knee arthroplasty. Endorses pain lying in bed. No acute distress. Planned for skilled rehab as does not have adequate support at home. Exam Vital Signs (past 8 hours): - 01/07/25 04:05 Pulse Oximetry 93 Oxygen Flow Rate 0 Oxygen Delivery Method Nasal Cannula Oxygen Flow Rate 0 Narrative Exam Narrative: Alert and oriented no acute distress lying in bed. Right lower extremity Reynaldo wrap and Aquacel in place. Aquacel for the stem and dry. Thigh and calf are soft. Demonstrates dorsiflexion plantar flexion of the ankle. Appropriate swelling for early postoperative right total knee. Objective Labs 01/07/25 05:50 Labs: Laboratory Results - last 24 hr 01/07/25 05:50 Hgb 8.6 L Hct 24.9 L PFSH Medical History (Updated 01/07/25 @ 07:04 by Jess Downs MD) DJD (degenerative joint disease) Osteopenia Osteoarthritis Pulmonary nodule GERD (gastroesophageal reflux disease) HTN (hypertension) HLD (hyperlipidemia) Depression Asthma Anemia COPD (chronic obstructive pulmonary disease) Surgical History (Updated 01/07/25 @ 07:04 by Jess Downs MD) S/P lumpectomy, right breast Hx of tonsillectomy Hx of cholecystectomy Hx of appendectomy Social History household members: family Smoking Status: Former smoker alcohol intake: former Assessment & Plan Post-op Assessment and plan (1) Arthritis of knee, right: Assessment and Plan narrative: Postop day 1 right total knee arthroplasty. Progressing along expected course. We will require assisted placement due to deconditioning and lack of social support. Rehab, assisted recommended by physical therapy. (2) Hx of total knee arthroplasty: Assessment and Plan narrative: Postop day 1. (3) Acute blood loss anemia: Assessment and Plan narrative: Acute blood-loss anemia related to recent surgery. We will add iron supplementation. Postoperative Procedures: Procedures Operation Date: 01/06/25 07:45 Actual Procedure Side Surgeon p Total Knee Arthroplasty - Robot Right Jess Downs MD Postoperative day: 1 Postoperative status: anemia Postoperative status narrative: Postop day 1. Right total knee. Acute blood loss anemia. Postoperative plan: routine post-op care Postoperative plan narrative: Continue working with physical therapy. Await snf placement. Aspirin 81 mg b.i.d. for DVT prophylaxis. SCDs in place. Weightbear as tolerated with the assistive devices Quality VTE Deep Vein Thrombosis/Pulmonary Embolism Present on Admission: No
[2025-01-07] MEDS: FERROUS SULFATE 325 MG TABLET PO ×2 (07:47→16:09)
[2025-01-07] MEDS: ONDANSETRON 4 MG/2 ML INJ IV ×2 (07:47→15:03)
[2025-01-07 08:28] VITALS: BP 106/51; PULSE 79
[2025-01-07] MEDS: METOPROLOL ER 25 MG TABLET PO (08:28)
[2025-01-07 08:29] VITALS: BP 106/51; PULSE 76
[2025-01-07] MEDS: LOSARTAN 50 MG TABLET 100 MG PO (08:29)
[2025-01-07] MEDS: MONTELUKAST 10 MG TABLET PO (08:29)
[2025-01-07] MEDS: ATORVASTATIN 20 MG TABLET PO (08:30)
[2025-01-07] MEDS: ESCITALOPRAM 10 MG TABLET PO (08:30)
[2025-01-07] MEDS: DOCUSATE 100 MG CAPSULE PO ×2 (08:30→20:04)
[2025-01-07] MEDS: LORATADINE 10 MG TABLET PO (08:30)
[2025-01-07] MEDS: hydroCHLOROthiazide 25 MG TABLET 12.5 MG PO (08:30)
[2025-01-07] MEDS: ASPIRIN EC 81 MG TABLET PO ×2 (08:30→20:04)
[2025-01-07] MEDS: FLUTICASONE 120 SPRAY/16 GM SPRAY.SUSP NASAL (08:34)
--- NOTE | 2025-01-07 11:13 | OT.IP.TRT ---
Current Diagnoses Acute posthemorrhagic anemia (01/06/25) Bilateral primary osteoarthritis of knee (01/06/25) Unilateral primary osteoarthritis, right knee (01/06/25) Other specified joint disorders, unspecified knee (01/06/25) Presence of unspecified artificial knee joint (01/06/25) Surgery Performed Operation Date: 01/06/25 07:45 Actual Procedures p Total Knee Arthroplasty - Robot(Right) - Jess Downs MD Occupational Therapy Treatment Note M2 OT-IP Current Condition Start: 01/06/25 16:17 Freq: Status: Active Protocol: Document 01/06/25 16:18 [facility] (Rec: 01/06/25 16:30 [facility] Desktop) Occupational Therapy Current Condition Current Condition Evaluation Date 01/06/25 Treatment Diagnosis S/P R TKA Diagnosis Onset Date 01/06/25 M3 OT- IP Subjective and Pain Start: 01/06/25 16:17 Freq: Status: Active Protocol: Document 01/07/25 12:23 [facility] (Rec: 01/07/25 12:40 [facility] Desktop) OT- Subjective Occupational Therapy Visit Type Type Treatment Note Visit Start Time 10:55 Visit Stop Time 11:13 Occupational Therapy Visit Comments Patient Comments Pt agreed to get up to rinse her mouth and brush her hair at the sink. Patient/Caregiver TO go to skilled rehab. Goals OT Pain Assessment Pain When Pain Assessed During Mobility Pain Present Pain Present Pain Reported Location right knee Pain Behaviors Facial Grimacing,Holding Area M4 OT- IP ADL's Start: 01/06/25 16:17 Freq: Status: Active Protocol: Document 01/07/25 12:23 CCC (Rec: 01/07/25 12:40 [facility] Desktop) OT [id number] Comments OT Self-Feeding Not at meal time. Comments OT ADL-Grooming General Evaluation Grooming Ability Minimal Assistance Areas Needing Combing/Brushing Hair Assistance Comments OT Grooming Comments Pt needing assist to comb the back of her head as pt standing with the FWW. OT ADL-Oral Care General Eval Oral Care Ability Standby Assistance Comments Oral Care Comments Pt able to stand with FWW so able to rinse her mouth out with mouthwash with SBA. M5 OT- IP IADL's Start: 01/06/25 16:17 Freq: Status: Active Protocol: Document 01/06/25 16:18 CCC (Rec: 01/06/25 16:30 [facility] Desktop) OT-Instrumental Activities of Daily Living Home Safety Awareness Awareness of Need Good Awareness for Assistance at Home Meal Preparation Meal Preparation Caregiver Provides Assist Adjunct Psychology Faculty Member Adjunct Psychology Faculty Member Caregiver Provides Assist M6 OT- IP Functional Cognition Start: 01/06/25 16:17 Freq: Status: Active Protocol: Document 01/07/25 12:23 [facility] (Rec: 01/07/25 12:40 [facility] Desktop) Cognitive Factors Limiting Selfcare Function Cognitive Ability Level of Alertness Alert Cognitive Comments Cognitive Assessment Pt much more clearer today and able to follow commands Comments for ADL and mobility needs. M7 OT- IP Mobility and Balance Start: 01/06/25 16:17 Freq: Status: Active Protocol: Document 01/07/25 12:23 [facility] (Rec: 01/07/25 12:40 [facility] Desktop) OT- Bed Mobility Assessment Supine to Sit Supine to Sit Assist Standby Assistance,Head of Bed Elevated Sit to Supine Sit to Supine Assist Standby Assistance OT-Transfer Assessment Sit to and From Stand Sit to and from Minimal Assistance Stand Transfers Transfer Ability Minimal Assistance Technique Transfer Destination Bed Comments Mobility Comments Pt able to get to the edge of the bed with increased time and able to come to stand with BRUNO to the FWW and able to walk to and from the sink with the FWW. Pt needing vc to push the FWW first and then step with her RLE and then LLE. Pt moving much better today. OT- Balance Assessment Sitting Balance and Reactions Static Sitting Good Balance Ability Dynamic Sitting Good Balance Ability Standing Balance and Reactions Static Standing Good Balance Ability Dynamic Standing Fair Balance Ability M8 OT- IP Objective Assessments Start: 01/06/25 16:17 Freq: Status: Active Protocol: Document 01/06/25 16:18 [facility] (Rec: 01/06/25 16:30 [facility] Desktop) OT Gross Range of Motion Upper Extremity Range of Motion Assessment Bilaterally Impaired ROM Impairments Decreased at end ROM OT Strength Upper Extremity Strength Assessment Bilaterally Impaired Comments Strength Comments BUE 4-/5 to 4/5 from proximal to distal. M9 OT- IP Assessment and Plan Start: 01/06/25 16:17 Freq: Status: Active Protocol: Document 01/07/25 12:23 [facility] (Rec: 01/07/25 12:40 [facility] Desktop) OT Summary Assessment and Plan Potential Rehabilitation Good Potential Analytic Complexity Low at Evaluation Summary OT Impairments Pain,Strength,Balance,Functional Mobility,Grooming, Dressing,Toileting,Bathing,Toilet Transfers,Shower Transfers,Activity Tolerance Progress Towards Progressing Toward Goals Goals Assessment Summary Pt moving better today and but still needing one person assist for ADL and mobility needs. Pt looking to go to skilled rehab when medically stable. Goals Self-Feeding Goal Independent Grooming Goal Independent Dressing Goal Minimal Assistance Toileting Goal Independent Bathing Goal Minimal Assistance Toilet Transfer Goal Independent Shower Transfer Goal Standby Assistance Days to Meet Goals 7 Frequency of Treatment Other frequency 5x/week Treatment Plan OT Treatment Plan ADL Training,Functional Mobility,Patient/Family Education,Discharge Planning Other Treatment Shower Recommendations and Next Treatment Focus Discharge Recommendations OT Discharge SNF Rehab Recommendations Transportation Needs Wheelchair/Cabulance at Discharge
[2025-01-07] MEDS: CALCIUM CARBONATE 500 MG TAB 1000 MG PO ×2 (11:45→16:09)
--- NOTE | 2025-01-07 12:50 | PT.IPTN ---
Current Diagnoses Acute posthemorrhagic anemia (01/06/25) Bilateral primary osteoarthritis of knee (01/06/25) Unilateral primary osteoarthritis, right knee (01/06/25) Other specified joint disorders, unspecified knee (01/06/25) Presence of unspecified artificial knee joint (01/06/25) Surgery Performed Operation Date: 01/06/25 07:45 Actual Procedures p Total Knee Arthroplasty - Robot(Right) - Jess Downs MD Physical Therapy Treatment Note M2 PT-IP Current Condition Start: 01/06/25 15:26 Freq: NEEDED Status: Active Protocol: Document 01/06/25 14:38 AB (Rec: 01/06/25 15:37 AB [id number]) Physical Therapy Current Condition Current Condition Evaluation Date 01/06/25 Treatment Diagnosis s/p R TKA; difficulty in walking Onset Date 01/06/25 M3 PT-IP Subjective Start: 01/06/25 15:26 Freq: NEEDED Status: Active Protocol: Document 01/07/25 09:45 BL (Rec: 01/07/25 12:50 BL Laptop) Subjective Physical Therapy Visit Type Type Treatment Note Visit Start Time 09:05 Visit Stop Time 09:30 Number of TELEGRAPH AND TELETYPE OPERATOR Visits 0 Physical Therapy Visit Comments Patient Comments Pt semi-brewster and agreeable to therapy session, following session pt sitting up in bathroom with PCT. PCT provided instruction for maintaining knee extension . Therapy Pain Assessment Location right knee Intensity 8 M4 PT-IP Mobility and Gait Start: 01/06/25 15:26 Freq: NEEDED Status: Active Protocol: Document 01/07/25 09:45 BL (Rec: 01/07/25 12:50 BL Laptop) PT-Bed Mobility Assessment Supine to Sit Supine to Sit Standby Assistance,1 Person Assistance,Head of Bed Elevated Sit to Supine Sit to Supine Contact Guard Assistance,1 Person Assistance PT-Transfer Assessment Sit to and From Stand Sit to and from Minimal Assistance,2 Person Assistance,Use of Upper Stand Extremities Equipment Transfer Assistive Gait Belt,Front Wheeled Walker Device Orthotic/Prosthetic No Devices or Brace: Transfers Transfer Destination Bed Comments Mobility Comments Pt requires assist with L LE for transfers to/from bed along with sit<>stand, cues for hand placement however unable to complete due to discomfort in R LE. Does not demo adequate strength to push up solely form L LE. Gait Assessment Gait Gait Assistance Minimum Assistance Required: Distance (Feet) 50 Assistive Devices Assistive Device Front Wheeled Walker Gait Deviations General Gait Pattern Decreased Stride Length,Decreased Feet Clearance,Step- to Gait Comments Gait Comments Pt ambulates with FWW, properly adjusted, demos heavy WB through B UE and decreased stance time on R LE. Requires 10 minutes to ambulate 50'. Pt becomes symptomatic at end of session reporting feeling dizzy. Pts MAP 109 and nursing notified. Stair Climbing Assessment Comments Stair Climbing unable to assess this session due to symptoms of Comments dizziness. M5 PT-IP Objective Assessments Start: 01/06/25 15:26 Freq: NEEDED Status: Active Protocol: Document 01/06/25 14:38 AB (Rec: 01/06/25 15:37 AB [id number]) Orientation Orientation/Cognition Level of Alertness Alert Orientation Name,Place,Situation Language Function No Deficits Noted Ability Safety Awareness Decreased Safety Awareness Memory Description No Deficits Noted Gross Range of Motion Lower Extremity ROM Impairments pain limiting ROM Strength Lower Extremity Strength Assessment Right Impaired Hip 4-/5 Knee 3+/5 Coordination Assessment Gross Coordination Gross Coordination WNL Sensation Assessment Sensation Gross Sensation WNL Muscle Tone Muscle Tone WNL Yes M6 PT-IP Treatment Start: 01/06/25 15:26 Freq: NEEDED Status: Active Protocol: Document 01/07/25 09:45 BL (Rec: 01/07/25 12:50 BL Laptop) Physical Therapy Treatment Exercises Exercises Ankle Pumps,Quad Sets,Heel Slides Knee ROM Measurement knee flexion 80 deg AROM, knee extension 5 deg Education Education Provided Precautions,Weight Bearing Status,Safety Other Treatments Other Treatment Education on resting into extension. Performed M7 PT-IP Assessment and Plan Start: 01/06/25 15:26 Freq: NEEDED Status: Active Protocol: Document 01/07/25 09:45 BL (Rec: 01/07/25 12:50 BL Laptop) PT Summary Assessment and Plan Summary Assessment Summary Pt demos improved mobility this session however continues to require Rahul-CGA for all mobility and is limited in her endurance and efficiency with activity. Pt has not been able to tolerate stair training and is currently not safe to return home. Pt will require short term SNF stay for focus on LE strengthening and pain control in order to return home safely. Goals Bed Mobility Goal Independent Transfer Goal Standby Assistance,Front Wheeled Walker Gait Goal Standby Assistance,Front Wheel Walker Gait Distance 100 Other Goals up/down 3 steps L rail ascending SBA Days to Meet Goals 5 Frequency of Treatment Frequency Of Twice a Day Treatment Treatment Plan Physical Therapy Bed Mobility Training,Transfer Training,Gait Training, Treatment Plan Therapeutic Exercise,Balance Retraining,Post Op Education,Discharge Planning,Hot or Cold Pack, Neuromuscular Re-ed,Coordination Retraining,Manual Therapy Weight Bearing Status Weight Bearing Weight Bear as Tolerated Status Allowed Weight RLE WBAT Bearing Amount ( enter % or #) (%) Recommendations To Nursing Amount of Assist 1 Person Assist Needed Discharge Recommendations PT Discharge Home with 04/02 Assist Available,Home Health,SNF Rehab Recommendations Transportation Needs Private Vehicle,Wheelchair/Cabulance at Discharge - PT assist 1 assist, monitor BP and symptoms
--- NOTE | 2025-01-07 13:03 | CM.DANOTE ---
Initial DCP Assessment Note Pt is a 69 yo female, lives in a trailer in [place] w/family, now POD#1 from R TKA PCP: Dr Rice, [facility] Payer: [employer] primary, [facility] A secondary Reviewed chart, therapies recommending SNF and patient has planned for discharge to SNF. Met w/patient with her niece, who has down syndrome, and brother in law in room. Patient lives independently with her family, works at [employer] in [place]. Patient admits she needs to take rest breaks often, poor activity tolerance. Discussed SNF and patient prefers to stay in [place] [facility]. Referral emailed to Sabina at who has accepted. Sent therapy and prog notes to [employer] CM via [employer] asking for SNF auth. If [employer] declines, patient could likely use her MCR A benefit for SNF stay starting 01/09. Hospital exempt PASRR completed, needs provider signature. CM team will plan to follow closely for coordination. ALLISON Weber Discharge Planning/Care Management Discharge Assessment Start: 01/06/25 06:38 Freq: Status: Active Protocol: Document 01/07/25 12:59 RICHARD (Rec: 01/07/25 13:03 RICHARD Desktop) Discharge Planning Assessment Assigned Discharge ALLISON Pandya [place] DPOA/Assigned Rohit Palacios, brother in law Designee Name Contact Information [phone] Advance Directives? No History Provided By Patient,Medical Record Prior Living Other Arrangements Comment Trailer Household Members family Type of Drives own vehicle transporation used prior to admit Independent with ADL Yes 's Is patient alert and Yes oriented? Needs Assistance Home Chores / Shopping With Comment Patient reports poor endurance and low activity tolerance r/t pain. Patient/Family [facility] Facility Preference Comment Patient prefers [facility] Barriers to Yes Discharge Comment Need [employer] auth. If [employer] denies, will likely be able to use patient's secondary MCR A coverage. Discharge Plan [facility] Facility Transportation van Arrangement Referrals Initiated [facility] If patient plan is Yes: Needs provider sig for Hospital exempt SNF: Has PASSR been completed?
[2025-01-07] MEDS: polyethylene glycoL 3350 17 GM POWD.PACK PO (13:17)
--- NOTE | 2025-01-07 15:12 | CM.DPNOTE ---
[facility] accepts for admission tomorrow pending auth from [place]. Transport scheduled tentatively for 1pm. RICHARD
--- NOTE | 2025-01-07 15:40 | PT.IPTN ---
Current Diagnoses Acute posthemorrhagic anemia (01/06/25) Bilateral primary osteoarthritis of knee (01/06/25) Unilateral primary osteoarthritis, right knee (01/06/25) Other specified joint disorders, unspecified knee (01/06/25) Presence of unspecified artificial knee joint (01/06/25) Surgery Performed Operation Date: 01/06/25 07:45 Actual Procedures p Total Knee Arthroplasty - Robot(Right) - Jess Downs MD Physical Therapy Treatment Note M2 PT-IP Current Condition Start: 01/06/25 15:26 Freq: NEEDED Status: Active Protocol: Document 01/06/25 14:38 AB (Rec: 01/06/25 15:37 AB [id number]) Physical Therapy Current Condition Current Condition Evaluation Date 01/06/25 Treatment Diagnosis s/p R TKA; difficulty in walking Onset Date 01/06/25 M3 PT-IP Subjective Start: 01/06/25 15:26 Freq: NEEDED Status: Active Protocol: Document 01/07/25 15:40 DLM (Rec: 01/07/25 16:55 DLM Desktop) Subjective Physical Therapy Visit Type Type Treatment Note Visit Start Time 14:45 Visit Stop Time 15:40 Notes 55 min Number of SENIOR RESEARCH CONSULTANT Visits 0 Physical Therapy Visit Comments Patient Comments She continues to feel she needs SNF rehab before going home. She complained of nausea with getting up and needed anti-nausea meds IV before she could participate in mobility. Patient Goals Get strong enough to return home Therapy Pain Assessment Pain When Pain Assessed After Treatment Pain Present Pain Present Pain Reported Location right knee Intensity 5 Scale Used Numeric (0 - 10) Description Aching,Tender,Tightness,With Movement Pain Behaviors Facial Grimacing,Guarding,Wincing Pain Management Apply Cold,Elevation,Re-positioning,Timing of Activity Techniques with Medications M4 PT-IP Mobility and Gait Start: 01/06/25 15:26 Freq: NEEDED Status: Active Protocol: Document 01/07/25 15:40 DLM (Rec: 01/07/25 16:55 DLM Desktop) PT-Bed Mobility Assessment Supine to Sit Supine to Sit Standby Assistance,Head of Bed Elevated,Bedrails Sit to Supine Sit to Supine Contact Guard Assistance,Bedrails Scooting Scooting to Edge of Independent Bed PT-Transfer Assessment Sit to and From Stand Sit to and from Contact Guard Assistance,Minimal Assistance,Use of Stand Upper Extremities Equipment Transfer Assistive Gait Belt,Front Wheeled Walker Device Transfers Transfer Destination Bed,Toilet Transfer Technique Stand Step Pivot Transfer Ability Level of Assist Contact Guard Assistance,Use of Upper Extremities Comments Mobility Comments Pt very nauseated with dry heaves with initially sitting edge of bed. Pt received IV medication from nursing to manage her symptoms before attempting gait. Pt able to ambulate to the bathroom to urinate. She was incontinent of urine before reaching the toilet. Provided dry/clean depends. Pt progressed to gait in the [place] after using the toilet. Pt returned to bed to rest after activity. Gait Assessment Gait Gait Assistance Contact Guard Assist,Minimum Assistance,1 Person Assist Required: Distance (Feet) 50 Assistive Devices Assistive Device Gait Belt,Front Wheeled Walker Gait Deviations General Gait Pattern Antalgic,Decreased Stride Length,Step-to Gait Factors Limiting Gait Function Factors Limiting Decreased Activity Tolerance,Decreased Strength,Limited Gait Function Range of Motion,Pain,Poor Balance Comments Gait Comments No dizziness during gait this visit. She continues to weight bear heavily on UE's on the FWW to manage pain and weakness in stance on right LE. She needs verbal cues for safety to slow down and keep steps short to manage her pain. She tends to hurry when she feels fatigued but this makes her gait pattern more unsafe. Stair Climbing Assessment Comments Stair Climbing unable to progress to stairs this visit Comments PT-Balance Assessment Sitting Balance and Reactions Static Sitting Normal Balance Ability Dynamic Sitting Good Balance Ability Standing Balance and Reactions Static Standing Good Balance Ability Dynamic Standing Fair Balance Ability Device Used FWW M5 PT-IP Objective Assessments Start: 01/06/25 15:26 Freq: NEEDED Status: Active Protocol: Document 01/06/25 14:38 AB (Rec: 01/06/25 15:37 AB [id number]) Orientation Orientation/Cognition Level of Alertness Alert Orientation Name,Place,Situation Language Function No Deficits Noted Ability Safety Awareness Decreased Safety Awareness Memory Description No Deficits Noted Gross Range of Motion Lower Extremity ROM Impairments pain limiting ROM Strength Lower Extremity Strength Assessment Right Impaired Hip 4-/5 Knee 3+/5 Coordination Assessment Gross Coordination Gross Coordination WNL Sensation Assessment Sensation Gross Sensation WNL Muscle Tone Muscle Tone WNL Yes M6 PT-IP Treatment Start: 01/06/25 15:26 Freq: NEEDED Status: Active Protocol: Document 01/07/25 15:40 DLM (Rec: 01/07/25 16:55 DLM Desktop) Physical Therapy Treatment Exercises Exercises Ankle Pumps,Quad Sets,Heel Slides,Straight Leg Raises, Short Arc Quads,Passive Knee Extension Hang,Seated Knee Flexion/Extension Education Education Provided Weight Bearing Status,Post-Op Packet,Safety Other Treatments Other Treatment she needs assist for her exercises, especially straight Performed leg raises M7 PT-IP Assessment and Plan Start: 01/06/25 15:26 Freq: NEEDED Status: Active Protocol: Document 01/07/25 15:40 DLM (Rec: 01/07/25 16:55 DLM Desktop) PT Summary Assessment and Plan Summary Impairments Pain,ROM,Strength,Balance,Coordination,Sensation,Tone, Cognition,Bed Mobility,Transfers,Gait,Activity Tolerance Progress Towards Slow Progress due to Activity Tolerance Goals Assessment Summary Sindy is progressing slowly but well this afternoon. Her nausea was a limiting factor for mobility until she was medicated. Pt reports she is not eating well at this time. She continues to have increased pain with all knee movements and weight bearing. Adjusted her FWW to improve her gait pattern and reduce her UE fatigue. Continue to recommend SNF rehab at discharge due to her slow progression post-op. Will continue to work towards return home as she can progress in therapy. Goals Bed Mobility Goal Independent Transfer Goal Standby Assistance,Front Wheeled Walker Gait Goal Standby Assistance,Front Wheel Walker Gait Distance 100 Other Goals up/down 3 steps L rail ascending SBA Days to Meet Goals 5 Frequency of Treatment Frequency Of Twice a Day Treatment Treatment Plan Physical Therapy Bed Mobility Training,Transfer Training,Gait Training, Treatment Plan Therapeutic Exercise,Balance Retraining,Post Op Education,Discharge Planning,Hot or Cold Pack, Neuromuscular Re-ed,Coordination Retraining,Manual Therapy Precautions Other Precautions fall risk post-op Weight Bearing Status Weight Bearing Weight Bear as Tolerated Status Allowed Weight RLE WBAT Bearing Amount ( enter % or #) (%) Recommendations To Nursing Amount of Assist 1 Person Assist Needed Discharge Recommendations PT Discharge SNF Rehab Recommendations Transportation Needs Private Vehicle,Wheelchair/Cabulance at Discharge - PT assist 1
[2025-01-07] MEDS: hydrOXYzine HCL 25 MG TABLET PO (16:09)
[2025-01-07 19:48] VITALS: PULSE 73; RESP 16; O2SAT 95
[2025-01-07 20:00] VITALS: BP 116/40; PULSE 76; RESP 18; TEMP 36.1; O2SAT 96
[2025-01-08] MEDS: methocarbamoL 500 MG TABLET 750 MG PO (02:02)
[2025-01-08] MEDS: OXYCODONE IR 10 MG TABLET PO ×2 (02:02→05:35)
[2025-01-08] MEDS: ACETAMINOPHEN 325 MG TABLET 650 MG PO ×2 (05:35→12:33)
[2025-01-08] MEDS: IBUPROFEN 400 MG TABLET PO ×2 (06:57→12:33)
--- NOTE | 2025-01-08 07:11 | PM.DS.1 ---
History of Present Illness History of Present Illness Date Patient Seen: 01/08/25 Time Patient Seen: 07:11 Chief complaint: R TKA Narrative: Status post right total knee arthroplasty 01/06/[address] Cevallos. Doing well today. Pain a little better controlled. Stable for discharge to [facility]. Does require assistance for mobilization as not enough social support at home to accommodate a home rehab. Has been indicated for senior care placement. Denies fevers chills nausea or vomiting. Discharge Providers Provider Date of admission: 01/06/25 06: Discharge Date: 01/08/25 Primary care physician: Lane Robb MD Consults: 01/06/25 06:00 Consult to Anesthesiology Routine Comment: Consulting Provider: Anesthesiologist Reason for consultation: Regional block for post operative pain control Has provider been notified: No 01/06/25 11:22 Consult to Discharge Planning Routine Comment: snf Consult to Occupational Therapy Evaluate & Treat Comment: Physician Instructions: Evaluate and treat Consult to Physical Therapy Evaluate & Treat Comment: Physician Instructions: postop TKA protocol Discharge provider: Jess Downs MD Summary Hospital Course Discharge Diagnosis: Right knee arthritis Hospital Course: The patient was admitted to the acute care unit postoperative from right total knee arthroplasty. Pain was controlled with oral and IV medication weaned to oral medication. She worked with physical therapy and occupational therapy was indicated for senior care discharge. Once a accepting facility was approved patient was medically stable for discharge. She does have postoperative acute blood loss anemia. Her vital signs are stable. Status at Discharge Functional status at discharge: uses cane/walker Overall status at discharge: patient is progressing back to baseline Time Spent with Patient Time spent: Less than 30 minutes Exam Vital Signs (past 8 hours): Oxygen Delivery Method Room Air Oxygen Flow Rate 0 Narrative Exam Narrative: Alert and oriented female in no acute distress lying in bed. Respiratory unlabored on room air heart regular rate Right lower extremity with Aquacel bandage in place and Reynaldo wrap. Ice on the knee. Limited range of motion secondary to pain. Moderate swelling and ecchymosis. Calf and thigh soft. Demonstrates 5/5 dorsiflexion and plantar flexion. Expected postoperative swelling. No signs or symptoms of infection. Objective Labs 01/07/25 05:50 [facility] Medical History (Updated 01/07/25 @ 07:04 by Jess Downs MD) DJD (degenerative joint disease) Osteopenia Osteoarthritis Pulmonary nodule GERD (gastroesophageal reflux disease) HTN (hypertension) HLD (hyperlipidemia) Depression Asthma Anemia COPD (chronic obstructive pulmonary disease) Surgical History (Updated 01/07/25 @ 07:04 by Jess Downs MD) S/P lumpectomy, right breast Hx of tonsillectomy Hx of cholecystectomy Hx of appendectomy Social History household members: family Smoking Status: Former smoker alcohol intake: former Discharge Assessment & Plan Assessment and Plan Assessment: Postop day 2 status post right total knee arthroplasty for arthritis Medically stable for discharge to senior care facility. Plan of Treatment: Weightbear as tolerated with walker. May shower with Aquacel dressing. Commence knee range of motion working on full extension and flexion. Aspirin 81 mg b.i.d. for DVT prophylaxis x6 weeks. Follow up in Orthopedic Clinic in 2 weeks. Discharge Plan Discharge Plan Patient Disposition: SNF Transfer to: [facility] Discharge orders & Medications Prescriptions: New aspirin 81 mg Tablet,Delayed Release (Dr/Ec) 81 mg PO BID Qty: 84 0RF ferrous sulfate 325 mg (65 mg iron) Tablet 325 mg PO BIDWM Qty: 60 0RF ibuprofen 400 mg Tablet 400 mg PO Q4H Qty: 60 0RF docusate sodium 100 mg Capsule 100 mg PO BID Qty: 60 0RF hydroxyzine HCl 25 mg Tablet 25 mg PO Q6H PRN (Reason: Nausea) Qty: 60 0RF oxycodone 5 mg Tablet 5 mg PO Q4H PRN (Reason: Pain, Moderate (4-6)) Qty: 42 0RF Continued ibuprofen 600 MG tablet 600 mg PO TID Qty: 0 fluticasone propion-salmeterol [Advair Diskus] 500-50 mcg/dose Blister With Device 1 inh INHALATION DAILY zolpidem 5 mg Tablet 5 mg PO BEDTIME PRN (Reason: Insomnia) aspirin 81 mg Capsule 81 mg PO DAILY albuterol sulfate 2.5 mg /3 mL (0.083 %) solution for nebulization 2.5 mg inhalation Q4H PRN (Reason: Wheezing) ipratropium bromide 18 mcg/actuation Aerosol 1 puff INHALATION QID PRN (Reason: Cough) valacyclovir 500 mg Tablet 500 mg PO DAILY PRN (Reason: Wound Healing) acetaminophen 500 mg Tablet 1,000 mg PO Q6H PRN (Reason: Pain (Scale Score 4-6)) nystatin-triamcinolone 100,000-0.1 unit/g-% Cream 1 applic TOPICAL DAILY PRN (Reason: Rash) ibuprofen 200 mg Tablet 800 mg PO Q6H PRN (Reason: Pain (Scale Score 1-3)) omeprazole 20 mg Capsule,Delayed Release(Dr/Ec) 20 mg PO DAILY PRN (Reason: Heartburn) albuterol sulfate 90 mcg/actuation HFA aerosol inhaler 2 puff INHALATION Q4H PRN (Reason: Wheezing) fluticasone propionate 50 mcg/actuation [place],Suspension 1 spray INTRANASAL DAILY Rx Instructions: administer into each nostril loratadine 10 mg tablet 10 mg PO DAILY Patient Comments: TK ONE T PO D PRF ALLERGIES cholecalciferol (vitamin D3) [Vitamin D3] 25 mcg (1,000 unit) Capsule 2,000 unit PO DAILY rosuvastatin 10 mg Tablet 10 mg PO DAILY ipratropium-albuterol 0.5 mg-3 mg(2.5 mg base)/3 mL solution for nebulization 3 ml INHALATION Q6H PRN (Reason: wheezing) escitalopram oxalate 10 mg tablet 10 mg PO DAILY Atrovent HFA 17 mcg/actuation HFA aerosol inhaler 2 puff INHALATION 4XD PRN (Reason: SOB) methocarbamol 750 mg tablet 750 mg PO 3XD PRN (Reason: muscle spasm) montelukast 10 mg tablet 10 mg PO DAILY metoprolol succinate 25 mg tablet extended release 24 hr 25 mg PO DAILY losartan-hydrochlorothiazide 100-12.5 mg tablet 1 tab PO DAILY ferrous sulfate [iron] 325 mg (65 mg iron) tablet 325 mg PO Q OTHER DAY Patient Comments: Takes --. tramadol 50 mg tablet 50 mg PO DAILY PRN (Reason: pain) Follow up/Referrals: Lane Robb MD [Primary Care Provider, Internal Medicine] Diet/Activity/Treatments Diet: Diet as Tolerated Other treatments: Dressing/Wound care: -Remove the Reynaldo wrap 48 hours after surgery. -Keep Aquacell dressing in place until postoperative follow-up office visit. -you may see some drainage on the bandage, this is ok. If it is leaking or saturated, then the dressing can be changed to clean gauze or a clean surgical dressing from a pharmacy or reinforced with additional gauze and paper tape or dressings over the top. Otherwise, just keep dressing in place until follow up. -Okay to shower. Keep wound out of direct water stream. No soaking or submerging until all the scabs fall off (approximately 6 weeks). -Please call the office if dressing becomes significantly wet, soiled, or saturated. Activities: -Weight-bearing as tolerated. Use front wheeled walker, and progress to cane when safe. -Continue with home exercises as directed by your physical therapist. -Elevate ?toes above the nose if you have significant swelling in your lower leg. (A wedge pillow is easiest.) -Ice your incision as needed for pain/inflammation/swelling. Protect your skin with a folded pillowcase. Follow-up: -Follow-up with your surgeon or PA in the office in 10-14 days after surgery. -Follow-up with your surgeon 6 weeks postoperatively. Call the office if you have chest pain, shortness of breath, significant swelling that will not resolve with elevating, fever over 101?, significantly worsening pain. [facility]: [phone] You have been discharged with medications. These have already been sent to your pharmacy. Pain include pain medications: Oxycodone take 5 mg orally every 4 hours as needed for pain. If your pain is more severe you may take up to 2 or a maximum 3 pills (15 mg) every 4 hours for pain. Take the smallest dose necessary. Narcotic medication can make you feel constipated. You can get [id number]-[id number] stool softener such as docusate sodium-Colace at a pharmacy to help with this. You also have prescriptions for ibuprofen 800 mg take this 3 times a day for least the 1st 10 days after surgery to help with pain control. And acetaminophen (Tylenol) take 500-1000 mg 3 times a day for pain control. You also have a prescription for Zofran (ondansetron) this is a strong anti nausea medication that can be taken up to every 8 hours as needed for nausea Additionally will take a baby aspirin 81 mg twice a day (morning and night) to help prevent blood clots If you have been discharged with ketorolac (toradol) this is a strong anti-inflammatory, do not take ibuprofen/meloxicam/mortin or other NSAIDS while on ketorolac. Once your ketorolac prescription is finished, you may restart taking other NSAIDs again. narcotic pain medication, tylenol and aspirin are fine to continue while on ketorolac. Skin/Wound/Dressing Care Report to your healthcare provider any signs of infection, such as:: chills, fever, night sweats, increased pain, unusual drainage and unusual redness [facility] Reason for rehabilitation: Post-operative therapy Rehab type: Physical therapy Visit Report/Discharge Packet Instructions: DI for Knee Replacement, DI for Prescription Opioid Use Stand Alone Forms: Patient Portal/API Discharge Data Primary Care Provider: Lane Robb VTE Deep Vein Thrombosis/Pulmonary Embolism Present on Admission: No
[2025-01-08 08:00] VITALS: BP 151/63; PULSE 89; RESP 18; TEMP 36.5; O2SAT 96
[2025-01-08 08:02] VITALS: BP 151/63; PULSE 89
[2025-01-08] MEDS: FLUTICASONE 120 SPRAY/16 GM SPRAY.SUSP NASAL (08:02)
[2025-01-08] MEDS: ESCITALOPRAM 10 MG TABLET PO (08:02)
[2025-01-08] MEDS: METOPROLOL ER 25 MG TABLET PO (08:02)
[2025-01-08 08:03] VITALS: BP 151/63; PULSE 89
[2025-01-08] MEDS: FERROUS SULFATE 325 MG TABLET PO (08:03)
[2025-01-08] MEDS: hydroCHLOROthiazide 25 MG TABLET 12.5 MG PO (08:03)
[2025-01-08] MEDS: ATORVASTATIN 20 MG TABLET PO (08:03)
[2025-01-08] MEDS: DOCUSATE 100 MG CAPSULE PO (08:03)
[2025-01-08] MEDS: LOSARTAN 50 MG TABLET 100 MG PO (08:03)
[2025-01-08] MEDS: LORATADINE 10 MG TABLET PO (08:03)
[2025-01-08] MEDS: MONTELUKAST 10 MG TABLET PO (08:03)
[2025-01-08] MEDS: ASPIRIN EC 81 MG TABLET PO (08:04)
[2025-01-08] MEDS: hydrOXYzine HCL 25 MG TABLET PO (09:25)
[2025-01-08] MEDS: OXYCODONE IR 5 MG TABLET PO ×2 (09:31→12:35)
--- NOTE | 2025-01-08 10:15 | PT.IPTN ---
Current Diagnoses Acute posthemorrhagic anemia (01/06/25) Bilateral primary osteoarthritis of knee (01/06/25) Unilateral primary osteoarthritis, right knee (01/06/25) Other specified joint disorders, unspecified knee (01/06/25) Presence of unspecified artificial knee joint (01/06/25) Surgery Performed Operation Date: 01/06/25 07:45 Actual Procedures p Total Knee Arthroplasty - Robot(Right) - Jess Downs MD Physical Therapy Treatment Note M2 PT-IP Current Condition Start: 01/06/25 15:26 Freq: NEEDED Status: Active Protocol: Document 01/06/25 14:38 AB (Rec: 01/06/25 15:37 AB [id number]) Physical Therapy Current Condition Current Condition Evaluation Date 01/06/25 Treatment Diagnosis s/p R TKA; difficulty in walking Onset Date 01/06/25 M3 PT-IP Subjective Start: 01/06/25 15:26 Freq: NEEDED Status: Active Protocol: Document 01/08/25 10:15 DLM (Rec: 01/08/25 11:28 DLM Desktop) Subjective Physical Therapy Visit Type Type Treatment Note Visit Start Time 09:45 Visit Stop Time 10:15 Notes 30 min Number of SUCCESS COACH Visits 0 Physical Therapy Visit Comments Patient Comments She continues to feel like she needs to go to SNF before going home. She reports nausea again this AM; like she could vomit any minute. She took oral pain and anti-nausea meds this AM before therapy. Patient Goals Get better to return home and go back to work Therapy Pain Assessment Pain When Pain Assessed During Mobility Pain Present Pain Present Pain Reported Location right knee Intensity 9 Scale Used Numeric (0 - 10) Description Aching,Tender,Tightness,With Movement Pain Behaviors Facial Grimacing,Wincing Pain Management Apply Cold,Re-positioning,Timing of Activity with Techniques Medications M4 PT-IP Mobility and Gait Start: 01/06/25 15:26 Freq: NEEDED Status: Active Protocol: Document 01/08/25 10:15 DLM (Rec: 01/08/25 11:28 DLM Desktop) PT-Bed Mobility Assessment Supine to Sit Supine to Sit Standby Assistance,Bedrails Sit to Supine Sit to Supine Minimal Assistance,Bedrails Scooting Scooting to Edge of Independent Bed PT-Transfer Assessment Sit to and From Stand Sit to and from Standby Assistance,Use of Upper Extremities Stand Equipment Transfer Assistive Gait Belt,Front Wheeled Walker Device Transfers Transfer Destination Bed,Toilet Transfer Technique Stand Step Pivot Transfer Ability Level of Assist Standby Assistance,Contact Guard Assistance Comments Mobility Comments She needs reminders for safe use of UE's during sit- stand to manage her pain. She gets in a hurry and tries to sit down before reaching back for support. She needs reminders to slow down during mobility and stay inside of the FWW at all times. Pt up to bathroom to urinate this visit. She declined to stay up in the recliner this visit and returned to bed to rest after gait. Gait Assessment Gait Gait Assistance Contact Guard Assist Required: Distance (Feet) 50 Assistive Devices Assistive Device Gait Belt,Front Wheeled Walker Gait Deviations General Gait Pattern Antalgic,Decreased Stride Length Factors Limiting Gait Function Factors Limiting Decreased Activity Tolerance,Decreased Strength,Limited Gait Function Range of Motion,Pain,Poor Balance Comments Gait Comments She needs reminders for safe gait pattern with FWW post -op TKA. She reports increased knee pain with weight bearing during gait. She reports her pain limits her distances of gait. PT-Balance Assessment Sitting Balance and Reactions Static Sitting Normal Balance Ability Dynamic Sitting Normal Balance Ability Standing Balance and Reactions Static Standing Good Balance Ability Dynamic Standing Fair Balance Ability Device Used FWW M5 PT-IP Objective Assessments Start: 01/06/25 15:26 Freq: NEEDED Status: Active Protocol: Document 01/06/25 14:38 AB (Rec: 01/06/25 15:37 AB [id number]) Orientation Orientation/Cognition Level of Alertness Alert Orientation Name,Place,Situation Language Function No Deficits Noted Ability Safety Awareness Decreased Safety Awareness Memory Description No Deficits Noted Gross Range of Motion Lower Extremity ROM Impairments pain limiting ROM Strength Lower Extremity Strength Assessment Right Impaired Hip 4-/5 Knee 3+/5 Coordination Assessment Gross Coordination Gross Coordination WNL Sensation Assessment Sensation Gross Sensation WNL Muscle Tone Muscle Tone WNL Yes M6 PT-IP Treatment Start: 01/06/25 15:26 Freq: NEEDED Status: Active Protocol: Document 01/08/25 10:15 DLM (Rec: 01/08/25 11:28 DLM Desktop) Physical Therapy Treatment Exercises Exercises Ankle Pumps,Quad Sets,Heel Slides,Straight Leg Raises, Short Arc Quads,Passive Knee Extension Hang,Seated Knee Flexion/Extension Education Education Provided Safety Other Treatments Other Treatment no family present this visit, pt needs physical assist Performed to complete her exercises, educated pt in importance of keeping knee extended in supine at rest M7 PT-IP Assessment and Plan Start: 01/06/25 15:26 Freq: NEEDED Status: Active Protocol: Document 01/08/25 10:15 DLM (Rec: 01/08/25 11:28 DLM Desktop) PT Summary Assessment and Plan Summary Impairments Pain,ROM,Strength,Balance,Coordination,Sensation,Tone, Cognition,Bed Mobility,Transfers,Gait,Activity Tolerance Progress Towards Slow Progress due to Pain,Slow Progress due to Activity Goals Tolerance Assessment Summary Sindy continues to progress slowly in therapy post-op Right TKA. She is having difficulty with nausea and pain management. She continues to need one person assist for mobility and gait. Continue to recommend SNF rehab at discharge. Goals Bed Mobility Goal Independent Transfer Goal Standby Assistance,Front Wheeled Walker Gait Goal Standby Assistance,Front Wheel Walker Gait Distance 100 Other Goals up/down 3 steps L rail ascending SBA Days to Meet Goals 5 Frequency of Treatment Frequency Of Twice a Day Treatment Treatment Plan Physical Therapy Bed Mobility Training,Transfer Training,Gait Training, Treatment Plan Therapeutic Exercise,Balance Retraining,Post Op Education,Discharge Planning,Hot or Cold Pack, Neuromuscular Re-ed,Coordination Retraining,Manual Therapy Precautions Other Precautions fall risk post-op Weight Bearing Status Weight Bearing Weight Bear as Tolerated Status Allowed Weight RLE WBAT Bearing Amount ( enter % or #) (%) Recommendations To Nursing Amount of Assist 1 Person Assist Needed Discharge Recommendations PT Discharge SNF Rehab Recommendations Transportation Needs Private Vehicle,Wheelchair/Cabulance at Discharge - PT assist 1
--- NOTE | 2025-01-08 13:11 | PC.NURSE ---
IV removed. Discharge packet assembled and given to [facility] personnel that picked up pt. Pt exited via w/c.
--- NOTE | 2025-01-08 14:05 | CM.DPNOTE ---
DC Note Patient discharged to [facility] today. [place] auth secured from [facility] at [place]. [place] auth# [id number]. Relayed to Sabina at [facility]. tube room supervisor scheduled for 1pm. Gina, child care worker, helping with this coordination. hospital exempt PASRR and SNF orders emailed. Patient remains agreeable to plan. Plan: Discharge to [facility]R via [facility]. RICHARD
== END 2025-01-08 13:08 | DRG 470 ==
PROVIDERS: Admitting Provider Orthopaedic Surgery Foot and Ankle Surgery; PCP Internal Medicine; Referring Provider Internal Medicine; Visit Provider Orthopaedic Surgery Foot and Ankle Surgery
PROC: 0SRC0JZ Replacement of Right Knee Joint with Synthetic Substitute, Open Approach (ICD-10-PCS; CPT 27447; principal; 2025-01-06 07:45)
DX: M17.11 Unilateral primary osteoarthritis, right knee (principal); D62 Acute posthemorrhagic anemia; M21.061 Valgus deformity, not elsewhere classified, right knee; M25.761 Osteophyte, right knee; I10 Essential (primary) hypertension; E78.5 Hyperlipidemia, unspecified; K21.9 Gastro-esophageal reflux disease without esophagitis; J44.9 Chronic obstructive pulmonary disease, unspecified; F32.A Depression, unspecified; Z87.891 Personal history of nicotine dependence
CPT/HCPCS: 36415; 73560; 85014; 85018; 94640; 97110; 97116; 97162; 97165; 97530; C1776; A9270; C1713; J0666; J0690; J1100; J1171; J2405; J2704; J3010; J7613